=== PATIENT | male | born 1975 | race Caucasian/White ===

== ENCOUNTER 2017-03-22 15:28 | Emergency (ER) | payer SELFPAY ==
[~2017-03-22 15:28] MED LIST: AZITHROMYCIN 250 MG TAB PO SCH
[2017-03-22 15:41] VITALS: RESP 18; TEMP 98.1; O2SAT 95
[2017-03-22] MEDS ORDERED: LORazepam 1 MG TAB PO ONE (15:52)
[2017-03-22] MEDS ORDERED: CHLORDIAZEPOXIDE 25MG PREPK#6 BTL TAKEHOME ONE (15:52)
--- NOTE | 2017-03-22 15:52 | EDPHY ---
General Narrative: CHIEF COMPLAINT: Cough, alcohol withdrawal HISTORY OF PRESENT ILLNESS: Patient complains of cough, runny nose, sinus congestion and possible pneumonia. He also complains of detoxing from alcohol. Regarding alcohol, he reports daily ingestion of 30+ beers. He last had intake of alcohol 17 hr ago. He is starting to feel tremulous. He has had no vomiting. No chest pain. Regarding the cough, he has had several days of cough, congestion, runny nose and sore throat. He has felt that he has been wheezing. He has minimal shortness of breath and no extremity erythema edema or pain. He has been sleeping on the streets and feels that "maybe I have walking pneumonia." He does smoke cigarettes. He is concerned about alcohol withdrawal and wants to be detoxed. He recently arrived from [place] yesterday. He has not yet been evaluated for this. No other associated complaints or modifying factors. REVIEW OF SYSTEMS: Ten systems reviewed and are negative unless otherwise noted in the HPI PCP: None yet established SPECIALISTS: None PAST MEDICAL HISTORY: Alcohol abuse PAST SURGICAL HISTORY: Multiple previous surgeries. No recent surgeries SOCIAL HISTORY: Daily smoker. Daily ingestion of 30 beers. Occasional marijuana use. Denies any IV drug use FAMILY HISTORY: Noncontributory EXAMINATION General Appearance: Alert, no distress, unkempt. Resting comfortably Head: normocephalic, atraumatic Eyes: Pupils equal and round, no conjunctival pallor or injection ENT, Mouth: Mucous membranes moist with poor dentition and multiple dental caries. Uvula is midline. There is no erythema or edema. Airway is widely patent Neck: Normal inspection, supple, non-tender Respiratory: Scattered rhonchi. No wheezing. No crackles. No diminishment. No retractions or distress Cardiovascular: Regular rate and rhythm. No murmur Gastrointestinal: Abdomen is soft and nontender Back: non-tender, no bony abnormalities Neurological: GCS 15. Cranial nerves 2-12 grossly intact. A&O, nonfocal, normal gait. Strength is symmetric in the upper extremities. There is no pronator drift. No dysmetria. No tremor. Normal finger to nose Skin: Unclean skin but grossly intact without petechiae or purpura Extremities: Nontender, no pedal edema. Symmetric range of motion extremities. No unilateral erythema or edema. Psychiatric: Mood and affect normal. Denies any depression or hopelessness. Denies suicidal ideation or homicidal ideation. DIFFERENTIAL DIAGNOSES: Including but not limited to alcohol intoxication, alcohol abuse, alcohol withdrawal, acute bronchitis, pneumonia MDM: 3:50 p.m. Alcohol intoxication with likely early alcohol withdrawal. He is not tachycardic, febrile or altered. He has normal neuro examination with no tremor or seizure-like activity. I do feel that he has risk of seizure due to alcohol withdrawal if not treated, thus I have ordered Ativan by mouth. Regarding his respiratory complaint, is vital signs are within normal limits without crackles or diminishment. Likely bronchitis but given the fact that he smoked, I will treat him with Zithromax and inhaler. I do not feel he warrants any laboratory studies are chest x-ray with normal vital signs and normal examination. The patient would like to be detox, thus we will provide a cab to the [facility] for him to receive Librium taper. Zithromax will be provided by medication assistance program. Albuterol inhaler will be provided upon discharge. Additionally I will provide the information for [facility]. We discussed ED precautions. He is comfortable this plan. SUPERVISION: Patient was independently examined, but I discussed the case with my secondary supervising physician Dr. Slade - History Smoking Status: Current every day smoker - Objective Vital Signs: Initial Vital Signs Temperature (C) 98.1 F 03/22/17 15:36 Heart Rate 94 03/22/17 15:36 Respiratory Rate 18 03/22/17 15:36 Blood Pressure 127/93 H 03/22/17 15:36 O2 Sat (%) 95 03/22/17 15:36 O2 Delivery Mode Room Air Allergies/Adverse Reactions: INH Allergy (Uncoded 03/22/17 15:36) Home Medications: Medication Instructions Recorded Azithromycin [Zithromax] 250 mg PO DAILY #6 tab 03/22/17 Departure - Departure Disposition: Home, Routine, Self-Care Clinical Impression: Acute bronchitis Qualifiers: Bronchitis organism: unspecified organism Qualified Code(s): J20.9 - Acute bronchitis, unspecified Alcohol withdrawal Qualifiers: Complication of substance-induced condition: uncomplicated Qualified Code(s): F10.230 - Alcohol dependence with withdrawal, uncomplicated Condition: Good Instructions: Chlordiazepoxide (By mouth), How to Stop Smoking (ED), Acute Bronchitis (ED), Alcohol Intoxication (ED), Abuse of Alcohol (ED) Additional Instructions: 1. Medications as prescribed 2. Librium taper per protocol at the [facility] 3. ED precautions as discussed 4. Contact the on-call primary care physician or [facility] as provided Referrals: [facility],. [Clinic] - As per Instructions [facility] Detox 24 Hours [Outside] - As per Instructions Prescriptions: Azithromycin [Zithromax] 250 mg PO DAILY #6 tab
[2017-03-22] MEDS ORDERED: ALBUTEROL INH PREPACK MDI TAKEHOME ONE (15:53)
--- NOTE | 2017-03-22 16:20 | ASDISCHSUM ---
Discharge Information Plan Status:Substance Abuse Referrals Medically Cleared to Leave: Discharge Date: CM D/C Disposition:Home, Routine, Self-Care ADT D/C Disposition:Home, Routine, Self-Care Projected Discharge Date: Transportation at D/C:Cab Voucher Discharge Delay Reason: Follow-Up Date: Discharge Slot: Final Diagnosis: Placement Information Patient Contact Information Contact Name:JUAN Relationship:Father Address: Work Phone: City: [facility] Phone: State/[place]_ Code: Email: Financial Information Financial Class:Self-Pay Primary Plan Desc:SELF PAY Primary Plan Number: Secondary Plan Desc: Secondary Plan Number: Assessment Information Intervention Information Intervention Type:Medication Date of Service:03/22/2017 04:17 PM Patient Type:Emergency Room Staff Member:CATHY Arias Sharon Hours:0.25 Discipline:Machine Skiver Severity: Comment:Antibiotics MAP'd, provided to patient . Intervention Type:Community Resources Date of Service:03/22/2017 04:17 PM Patient Type:Emergency Room Staff Member:CATHY Arias Sharon Hours:0.25 Discipline:Machine Skiver Severity: Comment:Patient provided information on [employer] n[employer], other homeless resources. Intervention Type:Health Clinic Date of Service:03/22/2017 04:17 PM Patient Type:Emergency Room Staff Member:CATHY Arias [place] Hours:0.25 Discipline:Machine Skiver Severity: Comment:Patient provided information on [facility], [facility] (and [facility], where he is tj ng discharged to).
[2017-03-22 16:38] VITALS: BP 124/102; PULSE 95
== END 2017-03-22 16:35 | disposition home or self-care (01) ==
DX: J20.9 Acute bronchitis, unspecified (principal); F10.230 Alcohol dependence with withdrawal, uncomplicated; F17.210 Nicotine dependence, cigarettes, uncomplicated

== ENCOUNTER 2018-06-24 18:32 | Emergency (ER) | payer MEDICAID ==
[2018-06-24] MEDS ORDERED: LORazepam 2 MG/ML INJ IVP PRN (19:12)
[2018-06-24] MEDS ORDERED: LORazepam 1 MG TAB PO PRN (19:12)
--- NOTE | 2018-06-24 19:16 | EDPHY ---
H & P Time Seen by Provider: 06/24/18 18:57 HPI/ROS: CHIEF COMPLAINT: Multiple complaints HISTORY OF PRESENT ILLNESS: Patient is a 42-year-old male who states that he relapsed on using alcohol. He drinks a large amount of vodka daily. He feels as though he may be in early withdrawal. He has epigastric abdominal discomfort. He reports numerous episodes of nonbloody emesis. Patient also complains of shortness of breath. He has an ongoing nonproductive cough. Patient states he has a history of asthma. Patient also complains of "varicose veins" bilaterally. REVIEW OF SYSTEMS: 10 systems were reveiwed and are negative with the exception of the elements mentioned in the history of present illness. Past Medical/Surgical History: Includes alcohol abuse, varicose veins Smoking Status: Current every day smoker Physical Exam: Vitals noted. Tachycardic GENERAL: No acute distress, alert. HEENT: Eyes normal to inspection, normal pharynx, no signs of dehydration. NECK: Normal, supple. RESPIRATORY: Clear to auscultation bilaterally, no rales, rhonchi or wheezing. Normal CVS: Regular rate and rhythm, no rubs, murmurs, or gallops. ABDOMEN: Soft, mild epigastric tenderness to palpation, nondistended, no organomegaly. BACK: Normal to inspection, no CVA tenderness. SKIN: Normal color, no rash, warm, dry. No pallor. EXTREMITIES: No pedal edema, no calf tenderness, no Homans sign or cords, no joint swelling. NEURO/PSYCH: Alert and oriented, normal mood and affect, normal motor sensory exam. Constitutional: Initial Vital Signs Temperature (C) 36.7 C 06/24/18 18:39 Heart Rate 109 H 06/24/18 18:39 Respiratory Rate 18 06/24/18 18:39 Blood Pressure 133/94 H 06/24/18 18:39 O2 Sat (%) 97 06/24/18 18:39 O2 Delivery Mode Room Air Allergies/Adverse Reactions: INH Allergy (Uncoded 03/22/17 15:36) Home Medications: Medication Instructions Recorded Azithromycin [Zithromax] 250 mg PO DAILY #6 tab 03/22/17 Medical Decision Making - Diagnostics Imaging Results: Imaging Impressions Chest X-Ray 06/24/18 19:37 Impression: Minimal bronchitis. No other findings for acute cardiopulmonary abnormality. ED Course/Re-evaluation: In the emergency department discussed possible etiologies with the patient. I answered all his questions. Because he was tachycardic an IV was placed. Patient given normal saline 1 L IV for hydration. CIWA protocol was followed and he was given Ativan. CBC is unremarkable. Chemistry pending. chest x-ray: No acute disease noted. Please refer the dictated report by the radiologist. The patient does not want to go to the [facility]. I discussed options with the patient. The patient's white count is slightly low. Chemistry panel shows slightly low potassium at 3.2. Differential Diagnosis: My differential includes but is not limited to alcohol abuse, alcohol withdrawal , gastritis, esophagitis, Marilia-Camacho tear, pneumonia, bronchitis, asthma exacerbation - Data Points Laboratory Results: Laboratory Results 06/24/18 19:40 06/24/18 19:40 06/24/18 04 19:40 19:40 WBC 3.63 10^3/uL L 10^3/uL (3.80-9.50) RBC 4.22 10^6/uL L 10^6/uL (4.40-6.38) Hgb 13.7 g/dL g/dL (13.7-17.5) Hct 40.2 % % (40.0-51.0) MCV 95.3 fL fL (81.5-99.8) MCH 32.5 pg pg (27.9-34.1) MCHC 34.1 g/dL g/dL (32.4-36.7) RDW 13.4 % % (11.5-15.2) Plt Count 182 10^3/uL 10^3/uL (150-400) MPV 9.9 fL fL (8.7-11.7) Neut % (Auto) 46.3 % % (39.3-74.2) Lymph % (Auto) 35.5 % % (15.0-45.0) Holt % (Auto) 15.7 % H % (4.5-13.0) Eos % (Auto) 1.1 % % (0.6-7.6) Baso % (Auto) 1.1 % % (0.3-1.7) Nucleat RBC Rel Count 0.0 % % (0.0-0.2) Absolute Neuts (auto) 1.68 10^3/uL L 10^3/uL (1.70-6.50) Absolute Lymphs (auto) 1.29 10^3/uL 10^3/uL (1.00-3.00) Absolute Monos (auto) 0.57 10^3/uL 10^3/uL (0.30-0.80) Absolute Eos (auto) 0.04 10^3/uL 10^3/uL (0.03-0.40) Absolute Basos (auto) 0.04 10^3/uL 10^3/uL (0.02-0.10) Absolute Nucleated RBC 0.00 10^3/uL 10^3/uL (0-0.01) Immature Gran % 0.3 % % (0.0-1.1) Immature Gran # 0.01 10^3/uL 10^3/uL (0.00-0.10) Sodium 137 mEq/L mEq/L (135-145) Potassium 3.2 mEq/L L mEq/L (3.5-5.2) Chloride 100 mEq/L mEq/L (97-110) Carbon Dioxide 26 mEq/l mEq/l (22-31) Anion Gap 11 mEq/L mEq/L (6-14) BUN 5 mg/dL L mg/dL (7-23) Creatinine 0.7 mg/dL mg/dL (0.7-1.3) Estimated GFR > 60 Glucose 116 mg/dL H mg/dL (70-100) Calcium 8.9 mg/dL mg/dL (8.5-10.4) Departure - Departure Disposition: Home, Routine, Self-Care Clinical Impression: Shortness of breath, Alcohol abuse Alcohol withdrawal Qualifiers: Complication of substance-induced condition: uncomplicated Qualified Code(s): F10.230 - Alcohol dependence with withdrawal, uncomplicated Condition: Fair Instructions: Acute Abdominal Pain (ED), Alcohol Withdrawal (ED), Shortness of Breath (ED) Additional Instructions: Return with increasing shortness of breath, chest pain or any other concerns. Slowly decrease your alcohol intake. Referrals: [facility],. [Clinic] - 1-2 days without fail
[2018-06-24 19:54] LABS: PLATELET COUNT 182 10^3/uL (150-400)
[2018-06-24] MEDS ORDERED: chlordiazePOXIDE 25 MG CAP PO ONE (20:22)
[2018-06-24 23:06] VITALS: BP 116/78
== END 2018-06-24 23:06 | disposition home or self-care (01) ==
DX: J40 Bronchitis, not specified as acute or chronic (principal); R10.13 Epigastric pain; F10.230 Alcohol dependence with withdrawal, uncomplicated
CPT/HCPCS: 96374; J2060